=== PATIENT | female | born 1990 | race Caucasian/White ===

== ENCOUNTER 2024-02-14 14:12 | Inpatient (IN) ==
[2024-02-14] MEDS ORDERED: CALCIUM CARBONATE 500 MG CHEWABLE TAB PO PRN (15:09)
[2024-02-14] MEDS ORDERED: ACETAMINOPHEN 325 MG TAB PO PRN ×2 (15:09→21:13)
[2024-02-14] MEDS ORDERED: OXYTOCIN 30 UNITS/NSS 30 UNITS/500 ML BAG IV PRN ×3 (15:09→21:13)
[2024-02-14] MEDS: LACTATED RINGER'S 1,000 ML IV PRN (15:46)
[2024-02-14] MEDS: PENICILLIN GK 6 MU in DEXTROSE 5% 250 ML IV STA (15:46)
--- NOTE | 2024-02-14 16:06 | History & Physical Report ---
Date of Service February 14, 2024 Assessment & Plan (1) Post-term , 40-42 weeks of gestation: Plan: IUP at 41 4/7 weeks presents for IOL will start pitocin and IV PCN. Plan to AROM once contractions are regular. planning unmedicated Admission and Anticipated Discharge Date Admission Date: February 14, 2024 History of Present Illness Primary Care Provider: RORY Hua Patient is a 33 yo female EDC02/03/24 who presents at 41 4/7 weeks for induction because of post term . otherwise uncomplicated. GBS (+) Occasional contractions since yesterday. some bloody show. no SPROM. Allergies Allergy/AdvReac Type Severity Reaction Status Date / Time No Known Allergies Allergy Verified 02/13/24 08:57 Home Medications Medication Instructions Recorded Confirmed Type 21-iron fu-folic acid 1 tab PO DAILY 07/03/23 02/14/24 History [ Complete] Patient History Medical History History of chicken pox Anxiety Surgical History History of removal of skin mole Family History Grandmother (Maternal) Breast cancer Bladder cancer Grandfather (Paternal) Colorectal cancer Prostate cancer Grandfather (Maternal) Myocardial infarction Myeloma Aunt Ovarian cancer Uncle Prostate cancer Father Lymphoma Diabetes Brother Cancer Testicle cancer Grandmother (Paternal) Lung cancer Other Kidney disease Social History Smoking Status: Never smoker Second Hand Exposure: No; Do You Dip or Chew Tobacco: No; Hx Alcohol Use: No Hx Substance Use: No Preferred Language: [place]itanian Communication Ability: Effective Visual Impairment: No Limitations Hearing Ability: Normal Project Surveyor Required: No Beliefs That Will Affect Care: None marital status: marital status details: Ibrahima Green (36) [phone] Current Living Situation: Spouse Current Living Situation Comment: lives with spouse, daughter, cats-pt to wear gloves/mask current occupational status: other current occupation: homemaker How many Children do You have: 1 Other Information That Helps Us Care for You: No Feels Safe at Home: Yes Safety Concerns: Feels Safe At This Time Childhood Exposure to Second-Hand Smoke: No Diet: regular caffeine: Yes during the past year weight has: remained stable Dental Care, Regularly: Yes Physical Activity Frequency: Daily Seatbelt Use: always Sunscreen Use: Yes Assistive Devices: None Review of Systems All systems reviewed & are unremarkable except as noted in HPI & below Physical Exam Constitutional: WD/WN, vitals as above Psychiatric: A+Ox3, euthymic affect Genitourinary: OB Exam Abdomen: + vertex, + estimated weight (7-8 pounds) and + irregular contractions Manual OB Exam: + cervical dilation 3 cm , + cervical effacement 70% and + station -2 OB Exam Monitor Tracing: + external FHT monitor used, + external uterine monitor used, + category I and + normal FHT variability Results & Data Vital Signs (Past 12 Hours) Vital Signs Temp Pulse Resp BP 02/14/24 15:49 60 02/14/24 15:49 136/80 02/14/24 14:35 97.9 F 20 02/14/24 14:23 70 130/80 02/14/24 14:22 20 02/14/24 14:22 97.9 F 20 Code Status & VTE Plan VTE Prophylaxis Plan VTE Prophylaxis will be ordered: No Coding Level of Care Code None Diagnoses Post-term , 40-42 weeks of gestation O48.0
[2024-02-14 16:12] LABS: Hematocrit (blood only) 34.5 % (37.0-47.0); Hemoglobin 11.6 g/dl (12.0-16.0); Mean Corpuscular Hemoglobin 30.7 pg (25.0-34.0); Mean Corpuscular Hgb Conc 33.6 g/dL (32.0-36.0); Mean Corpuscular Volume 91.3 fL (80.0-100.0); Platelet Count 141 K/uL (130-400); RDW Coefficient of Variation 13.6 % (11.5-14.5); RDW Standard Deviation 45.8 fL (36.4-46.3); Red Blood Count 3.78 M/uL (4.20-5.40); White Blood Count 8.23 K/ul (4.8-10.8)
[2024-02-14] MEDS: OXYTOCIN 30 UNITS/NSS 30 UNITS/500 ML BAG IV PRN (16:35)
[2024-02-14] MEDS: PENICILLIN GK 3 MU in DEXTROSE 5% 100 ML IV PRN (19:13)
[2024-02-14] MEDS: LIDOCAINE 1% LOCAL 20 ML VIAL INFIL PRN (20:50)
[2024-02-14] MEDS ORDERED: bisacodyL 10 MG SUPP PR PRN (21:13)
[2024-02-14] MEDS ORDERED: HYDROCORTISONE ACETATE 25 MG SUPP PR PRN (21:13)
[2024-02-14] MEDS ORDERED: oxyCODONE/ACETAMINOPHEN 5mg/325mg TAB PO PRN (21:13)
--- NOTE | 2024-02-14 21:32 | Delivery Summary ---
Vaginal Delivery Summary Date of Service February 14, 2024 Vaginal Delivery Summary and 1st Degree LAC Patient is a 33-year-old 2 para 1-0-0-1 female EDC of 02/03/2024 who presented for induction of labor because of postterm . Pitocin induction was begun per labor and delivery protocol. Membranes were ruptured for clear fluid. She progressed to full dilation with urge to push. She pushed effectively over intact perineum for delivery of a viable female infant. After the head was delivered, there was a tight nuchal cord which was then clamped and cut. With maternal effort, the shoulders were delivered and the infant was placed on the mother's abdomen for further attention and drying. After the cord blood was obtained, the placenta was expressed intact with a three-vessel cord. bleeding was controlled with dilute Pitocin and fundal massage. 1% lidocaine was used to anesthetize the perineal laceration site. The first- degree perineal laceration was repaired with 3-0 chromic in usual fashion. This was an unmedicated . Mother and infant were doing well after delivery. QBL is 61 cc. [facility] Vaginal Delivery Charge Delivery Type Details: and 1st Degree LAC
[2024-02-14] MEDS: DIPHTHER/TETAN/PERTUS Vaccine (Tdap, Adol/Adult) 0.5mL IM ONE (22:06)
[2024-02-14] MEDS: BENZOCAINE 20% SPRY 85 APPLN/85 GM CAN EXT PRN (22:44)
[2024-02-14] MEDS: IBUPROFEN 600 MG TAB PO PRN (22:44)
--- NOTE | 2024-02-15 06:03 | Obstetrical Progress Note ---
Date of Service February 15, 2024 Assessment & Plan (1) Encounter for supervision of normal intrauterine in multigravida, antepartum: Plan Pt is 33 yo post- day 1 s/p at 41w4d Feel well today. Vital signs are stable Continue Post care Encourage ambulation and breast feeding Pain control with ibuprofen Hgb is stable Upon discharge, follow up with Dr. Miller in 6 weeks. Admission and Anticipated Discharge Date Admission Date: February 14, 2024 Supervising Physician Co-Signing Physician Notes Resident Physician Supervision Note: I interviewed and examined the patient. Discussed with Dr. Siegel and agree with findings and plan as documented in the note. Any exceptions or clarifications are listed here: [None] Documented By: Sia Miller MD, FACOG Subjective Pt is 33 yo post- day 1 s/p at 41w6d Ambulation: in room, short distances Voiding:voiding normally Passing gas: yes Diet tolerance:regular diet Lochia:bloody, no clots Feeding type: breast Current pain level: 3 /10 improved with ibuprofen Resting comfortably this morning in NAD. Denies RIDDLE, CP, SOB, N/V/D, LE pain/swelling. Review of Systems Review of Systems: As per HPI Physical Exam Constitutional: WD/WN, vitals as above Respiratory: normal respiratory effort, lungs clear to auscultation Cardiovascular: RRR, no murmur, no edema Gastrointestinal (Abdomen): normal bowel sounds, soft, nontender, no hepatosplenomegaly Uterine fundus firm at level of umbilicus Neurologic: PERRL, EOMI, accommodation nl, no face palsy, no dysarthria Moves all 4 extremities on command Psychiatric: A+Ox3, euthymic affect Results & Data Vital Signs (Past 12 Hours) Vital Signs Temp Pulse Pulse Resp BP BP 02/15/24 04:30 36.7 C 58 L 18 117/75 02/14/24 23:40 36.6 C 66 18 146/77 H 02/14/24 23:10 37.1 C 18 02/14/24 23:09 63 02/14/24 23:09 141/71 H 02/14/24 22:54 65 02/14/24 22:54 139/71 02/14/24 22:40 16 02/14/24 22:39 56 L 02/14/24 22:39 141/68 H 02/14/24 22:24 58 L 02/14/24 22:24 147/73 H 02/14/24 22:10 18 02/14/24 22:09 59 L 02/14/24 22:09 145/67 H 02/14/24 21:57 59 L 02/14/24 21:57 153/72 H 02/14/24 21:54 57 L 02/14/24 21:54 150/96 H 02/14/24 21:40 16 02/14/24 21:40 64 02/14/24 21:40 145/78 H 02/14/24 21:25 18 02/14/24 21:10 18 02/14/24 21:10 172/77 H 02/14/24 19:54 20 02/14/24 19:54 20 02/14/24 19:54 62 02/14/24 19:54 141/84 H 02/14/24 19:00 36.8 C 18 02/14/24 18:58 56 L 02/14/24 18:58 158/79 H 02/14/24 18:52 58 L 02/14/24 18:52 140/82 02/14/24 18:48 55 L 02/14/24 18:48 156/81 H 02/14/24 18:42 55 L 02/14/24 18:42 153/76 H 02/14/24 18:31 53 L 02/14/24 18:31 172/84 H Resident Activity Tracking Resident Involvement: Resident Care Provided Care Provided: Adult Hospital Medicine
[2024-02-15 06:49] LABS: Hematocrit (blood only) 33.3 % (37.0-47.0); Hemoglobin 11.6 g/dl (12.0-16.0); Mean Corpuscular Hemoglobin 31.3 pg (25.0-34.0); Mean Corpuscular Hgb Conc 34.8 g/dL (32.0-36.0); Mean Corpuscular Volume 89.8 fL (80.0-100.0); Mean Platelet Volume 12.1 fL (9.4-12.4); Platelet Count 136 K/uL (130-400); RDW Coefficient of Variation 13.6 % (11.5-14.5); RDW Standard Deviation 44.7 fL (36.4-46.3); Red Blood Count 3.71 M/uL (4.20-5.40)
[2024-02-15] MEDS: DOCUSATE SODIUM 100 MG CAP PO SCH (08:28)
[2024-02-15] MEDS: PRENATAL VITAMIN 1 TAB PO SCH (08:28)
[2024-02-15 20:49] VITALS: O2SAT 97
[2024-02-15] MEDS: bisacodyL 5 MG TABEC PO SCH (21:20)
--- NOTE | 2024-02-16 05:56 | Obstetrical Progress Note ---
Date of Service February 16, 2024 Assessment & Plan (1) Encounter for supervision of normal intrauterine in multigravida, antepartum: Plan Pt is 33 yo post- day 1 s/p at 41w4d Feel well today. Vital signs and Hgb are stable Encourage continued ambulation and breast feeding Pain controlled with ibuprofen Discharge to home, follow up with Dr. Miller in 6 weeks. Admission and Anticipated Discharge Date Admission Date: February 14, 2024 Supervising Physician Co-Signing Physician Notes Resident Physician Supervision Note: I was present with [Name of resident] during the history and exam. I discussed the case with the resident and agree with the findings and plan as documented in the note. Any exceptions or clarifications are listed here: [None] Documented By: Alix Scott MD, FACOG Subjective Pt is 33 yo post- day 2 s/p at 41w6d Ambulation:In and out of room Voiding:voiding normally Passing gas: yes BM:no Diet tolerance:regular diet Lochia:bloody, no clots Feeding type: breast Current pain level: 2 /10 improved with ibuprofen Resting comfortably this morning in NAD. Denies RIDDLE, CP, SOB, N/V/D, LE pain/swelling. Review of Systems Review of Systems: As per HPI Physical Exam Constitutional: WD/WN, vitals as above Respiratory: normal respiratory effort, lungs clear to auscultation Cardiovascular: RRR, no murmur, no edema Gastrointestinal (Abdomen): normal bowel sounds, soft, nontender, no hepatosplenomegaly Uterine fundus firm and 1-2 cm below umbilicus Neurologic: PERRL, EOMI, accommodation nl, no face palsy, no dysarthria Moving all 4 extremities on command Psychiatric: A+Ox3, euthymic affect Results & Data Vital Signs (Past 12 Hours) Vital Signs Temp Pulse Resp BP Pulse Ox O2 Del Method 02/16/24 00:00 36.5 C 61 18 136/73 97 Room Air 02/15/24 20:00 36.8 C 67 14 125/80 97 Room Air Resident Activity Tracking Resident Involvement: Resident Care Provided Care Provided: Adult Hospital Medicine
[2024-02-16 08:04] VITALS: BP 125/71; PULSE 60; TEMP 97.9
[2024-02-16 08:23] LABS: Hematocrit (blood only) 35.2 % (37.0-47.0); Hemoglobin 11.5 g/dl (12.0-16.0)
[2024-02-16 09:02] VITALS: RESP 18
== END 2024-02-16 15:05 | disposition home or self-care (01) | DRG 807 ==
LOC: 4S1 14:12 → 4E2 23:36